=== PATIENT | male | born 1975 | race Two or more races ===

== ENCOUNTER 2021-11-11 21:32 | Inpatient (IN) ==
[2021-11-12] MEDS ORDERED: ONDANSETRON 4 MG/2 ML VIAL IV PRN (03:20)
[2021-11-12] MEDS ORDERED: ALUMINUM/MAGNES/SIMETH MAX STR 30 ML UDCUP PO PRN (03:20)
[2021-11-12] MEDS ORDERED: GLUCAGON 1 MG VIAL IM PRN (03:20)
[2021-11-12] MEDS ORDERED: ACETAMINOPHEN 325 MG TABLET PO PRN (03:20)
[2021-11-12] MEDS ORDERED: DEXTROSE 50% 25 GM/50 ML SYRINGE IV PRN (03:20)
[2021-11-12] MEDS ORDERED: MORPHINE 2 MG/1 ML SYRINGE IV PRN (03:20)
[2021-11-12] MEDS ORDERED: MELATONIN 3 MG TABLET PO PRN (03:29)
[2021-11-12] MEDS: cefTRIAXone 1,000 MG in SODIUM CHLORIDE 0.9% 100 ML IV SCH (04:15)
[2021-11-12] MEDS: AZITHROMYCIN INJ 500 MG in SODIUM CHLORIDE 0.9% 250 ML IV SCH (05:15)
[2021-11-12 05:45] LABS: Basophils % 0.1 % (0.0-0.8); Hematocrit 39.5 VOL% (42.0-52.0); Hemoglobin 13.3 GM/DL (14.0-18.0); Immature Granulocytes % 2.5 %; Immature Granulocytes Absolute 0.21 #; Lymphocytes # 1.2 10*3/uL (1.4-4.0); Lymphocytes % 14.2 % (21.2-54.2); Mean Corpuscular HGB Conc 33.7 GM/DL (32-36); Mean Corpuscular Volume 87.6 FL (87-102); Mean Platelet Volume 8.9 FL (9.6-12.0); Neutrophils % 76.2 % (38.7-73.9); Platelet Count 739 T/CUMM (130-400); Red Blood Count 4.51 MC/CUMM (3.8-5.5); Red Cell Distribution Width 11.7 % (9.3-17.3); White Blood Count 8.5 T/CUMM (4-12)
[2021-11-12 06:01] LABS: INR 1.1; PT Patient Result 12.3 SECS (10.5-12.0)
[2021-11-12 06:22] LABS: Albumin 2.1 G/DL (3.4-5.0); Bilirubin,Total 0.6 MG/DL (0.20-1.00); Osmolality,Calculated 275.8 MOS/KG (273-304); Potassium 4.4 MMOL/L (3.5-5.1); Total Protein 7.8 G/DL (6.4-8.2)
[2021-11-12 06:36] LABS: Risk Ratio 10.07; Thyroid Stimulating Hormone 0.424 uIU/ml (0.358-3.74); VLDL Cholesterol 37.4 MG/DL
[2021-11-12] MEDS ORDERED: ALBUTEROL/IPRATROPIUM 3 ML NEB RESP TX SCH (07:00)
[2021-11-12] MEDS ORDERED: ALBUTEROL INHALER 18 GM INH PRN ×2 (08:16→08:17)
[2021-11-12] MEDS: CHOLECALCIFEROL 1,000 UNIT TABLET PO SCH (08:46)
[2021-11-12] MEDS: ASCORBIC ACID 500 MG TABLET PO SCH ×2 (08:46→22:07)
[2021-11-12] MEDS: DEXAMETHASONE 10 MG/1 ML VIAL IV SCH (08:46)
[2021-11-12] MEDS: FAMOTIDINE 20 MG TABLET PO SCH ×2 (08:46→22:07)
[2021-11-12] MEDS: ZINC GLUCONATE 50 MG TABLET PO SCH (08:47)
[2021-11-12] MEDS: ENOXAPARIN 40 MG/0.4 ML SYRINGE SUBCUT SCH (10:09)
[2021-11-13] MEDS: cefTRIAXone 1,000 MG in SODIUM CHLORIDE 0.9% 100 ML IV SCH (02:40)
[2021-11-13] MEDS: AZITHROMYCIN INJ 500 MG in SODIUM CHLORIDE 0.9% 250 ML IV SCH (04:00)
[2021-11-13 05:07] LABS: Basophils % 0.2 % (0.0-0.8); Hematocrit 40.3 VOL% (42.0-52.0); Hemoglobin 13.3 GM/DL (14.0-18.0); Immature Granulocytes % 2.4 %; Immature Granulocytes Absolute 0.32 #; Lymphocytes # 2.1 10*3/uL (1.4-4.0); Lymphocytes % 16.3 % (21.2-54.2); Mean Corpuscular Volume 90.2 FL (87-102); Mean Platelet Volume 9.2 FL (9.6-12.0); Monocytes % 8.1 % (1.7-12.7); Platelet Count 802 T/CUMM (130-400); Red Blood Count 4.47 MC/CUMM (3.8-5.5); Red Cell Distribution Width 11.8 % (9.3-17.3); White Blood Count 13.1 T/CUMM (4-12)
[2021-11-13 05:34] LABS: Ferritin 1801.6 ng/mL (26-388)
[2021-11-13 07:33] LABS: Sedimentation Rate-Westergren 56 MM/HR (0-15)
[2021-11-13 09:17] LABS: Calcium 9.1 MG/DL (8.5-10.1); Osmolality,Calculated 282.4 MOS/KG (273-304); Potassium 3.9 MMOL/L (3.5-5.1)
[2021-11-13] MEDS: ASCORBIC ACID 500 MG TABLET PO SCH ×2 (09:30→21:26)
[2021-11-13] MEDS: CHOLECALCIFEROL 1,000 UNIT TABLET PO SCH (09:30)
[2021-11-13] MEDS: DEXAMETHASONE 10 MG/1 ML VIAL IV SCH (09:30)
[2021-11-13] MEDS: ZINC GLUCONATE 50 MG TABLET PO SCH (09:30)
[2021-11-13] MEDS: FAMOTIDINE 20 MG TABLET PO SCH ×2 (09:30→21:26)
[2021-11-13] MEDS: ENOXAPARIN 40 MG/0.4 ML SYRINGE SUBCUT SCH ×2 (09:31→21:26)
[2021-11-14] MEDS: cefTRIAXone 1,000 MG in SODIUM CHLORIDE 0.9% 100 ML IV SCH (04:29)
[2021-11-14] MEDS: AZITHROMYCIN INJ 500 MG in SODIUM CHLORIDE 0.9% 250 ML IV SCH (05:36)
[2021-11-14 05:40] LABS: Ferritin 1345.5 ng/mL (26-388)
[2021-11-14 05:42] LABS: Basophils % 0.2 % (0.0-0.8); Eosinophils % 0.2 % (0.00-10.9); Hemoglobin 13.8 GM/DL (14.0-18.0); Immature Granulocytes % 2.8 %; Immature Granulocytes Absolute 0.34 #; Lymphocytes # 2.4 10*3/uL (1.4-4.0); Lymphocytes % 19.2 % (21.2-54.2); Mean Corpuscular HGB Conc 32.9 GM/DL (32-36); Mean Corpuscular Volume 89.6 FL (87-102); Mean Platelet Volume 8.8 FL (9.6-12.0); Neutrophils % 68.6 % (38.7-73.9); Platelet Count 813 T/CUMM (130-400); Red Blood Count 4.69 MC/CUMM (3.8-5.5); Red Cell Distribution Width 11.9 % (9.3-17.3); White Blood Count 12.4 T/CUMM (4-12)
[2021-11-14 05:50] LABS: Calcium 8.5 MG/DL (8.5-10.1); Osmolality,Calculated 283.3 MOS/KG (273-304); Potassium 4.8 MMOL/L (3.5-5.1)
[2021-11-14 06:55] LABS: Sedimentation Rate-Westergren 63 MM/HR (0-15)
[2021-11-14] MEDS: ASCORBIC ACID 500 MG TABLET PO SCH (09:08)
[2021-11-14] MEDS: FAMOTIDINE 20 MG TABLET PO SCH (09:08)
[2021-11-14] MEDS: ENOXAPARIN 40 MG/0.4 ML SYRINGE SUBCUT SCH (09:09)
[2021-11-14] MEDS: DEXAMETHASONE 10 MG/1 ML VIAL IV SCH (09:09)
[2021-11-14] MEDS: ZINC GLUCONATE 50 MG TABLET PO SCH (09:09)
[2021-11-14] MEDS: CHOLECALCIFEROL 1,000 UNIT TABLET PO SCH (09:09)
[2021-11-14 12:44] VITALS: BP 142/83
== END 2021-11-14 18:15 | disposition home or self-care (01) | DRG 177 ==
LOC: N.3E 11-12 01:04 → SUATTDRO 11-12 01:04
PROVIDERS: ADMIT Internal Medicine; ATTEND Internal Medicine